=== PATIENT | male | born 1940 | race Caucasian/White ===

== ENCOUNTER 2017-07-16 11:24 | Emergency (ER) | payer OTHER ==
[~2017-07-16] VITALS: Ht 170.2 cm; Wt 90.7 kg
[~2017-07-16 11:24] MED LIST: ALBU90OI INH; Aspir 8181 MG PO; Glucophage1000 MG PO; METF500 PO; METO25ER PO; METO50ER PO; Omeprazole20 M1 PO; QVAR7.3 G1 IH; SIMV10 PO; Simvastatin20 MG PO; VALSARTAN-HCTZ1 EACH PO; VALSARTAN/HCTZ PO
[2017-07-16 12:02] LABS: BASOPHILS ABSOLUTE AUTO 0.03 K/mm3 (0.00-0.23); BASOPHILS PERCENT AUTO 0 % (0-2); EOSINOPHILS ABSOLUTE AUTO 0.25 K/mm3 (0.00-0.68); EOSINOPHILS PERCENT AUTO 3 % (0-6); Hematocrit 40.4 % (37.0-53.0); Hemoglobin 13.5 g/dL (13.5-17.5); IMMATURE GRAN ABSOLUTE AUTO 0.02 K/mm3 (0.00-0.10); IMMATURE GRAN PERCENT AUTO 0 % (0-1); LYMPHOCYTES PERCENT AUTO 30 % (21-46); MONOCYTES ABSOLUTE AUTO 0.69 K/mm3 (0.16-1.47); MONOCYTES PERCENT AUTO 9 % (4-13); Mean Corpuscular HGB 32.3 pg (26.0-34.0); Mean Corpuscular HGB Conc 33.4 g/dL (31.5-36.5); Mean Corpuscular Volume 97 fL (80-100); Mean Platelet Volume 10.8 fL (9.1-12.4); NEUTROPHILS ABSOLUTE AUTO 4.29 K/mm3 (1.96-9.15); NEUTROPHILS PERCENT AUTO 57 % (41-73); Platelet Count 230 K/mm3 (150-400); RDW Coefficient Variation 13.1 % (11.7-14.2); RDW Standard Deviation 46.2 fL (35.1-46.3); Red Blood Cell Count 4.18 M/mm3 (4.30-5.90); White Blood Cell Count 7.58 K/mm3 (4.00-11.30)
[2017-07-16 12:15] LABS: Albumin, Blood 3.9 g/dL (3.4-5.0); Albumin/Globulin Ratio 1.1 (0.8-1.8); Bilirubin, Total 0.7 mg/dL (0.1-1.0); Bun/Creatinine Ratio 24.5 (12.0-20.0); Calcium, Blood 9.2 mg/dL (8.5-10.1); Creatinine, Blood 1.51 mg/dL (0.60-1.20); Globulin, Blood 3.4 g/dL (2.2-4.0); Potassium, Blood 4.3 mmol/L (3.5-5.5); Total Protein, Blood 7.3 g/dL (6.4-8.2)
== END 2017-07-16 14:58 | disposition home or self-care (01) ==
LOC: ER 11:24
PROVIDERS: Emergency Medicine
DX: R06.02 Shortness of breath (principal); R53.1 Weakness; Z79.899 Other long term (current) drug therapy; Z79.82 Long term (current) use of aspirin; Z79.84 Long term (current) use of oral hypoglycemic drugs; I10 Essential (primary) hypertension; E11.9 Type 2 diabetes mellitus without complications
CPT/HCPCS: 36415; 71045; 80053; 85025; 93005; 93010; 93225; 93226; 99283

== ENCOUNTER → 2017-08-14 | Outpatient (CLI) | payer OTHER ==
[2017-08-14 10:51] LABS: BASOPHILS ABSOLUTE AUTO 0.02 K/mm3 (0.00-0.23); BASOPHILS PERCENT AUTO 0 % (0-2); EOSINOPHILS ABSOLUTE AUTO 0.08 K/mm3 (0.00-0.68); EOSINOPHILS PERCENT AUTO 1 % (0-6); Hematocrit 39.1 % (37.0-53.0); Hemoglobin 13.2 g/dL (13.5-17.5); IMMATURE GRAN ABSOLUTE AUTO 0.03 K/mm3 (0.00-0.10); IMMATURE GRAN PERCENT AUTO 0 % (0-1); LYMPHOCYTES ABSOLUTE AUTO 1.38 K/mm3 (0.84-5.20); LYMPHOCYTES PERCENT AUTO 20 % (21-46); MONOCYTES ABSOLUTE AUTO 0.78 K/mm3 (0.16-1.47); MONOCYTES PERCENT AUTO 11 % (4-13); Mean Corpuscular HGB 32.5 pg (26.0-34.0); Mean Corpuscular HGB Conc 33.8 g/dL (31.5-36.5); Mean Corpuscular Volume 96 fL (80-100); Mean Platelet Volume 9.8 fL (9.1-12.4); NEUTROPHILS ABSOLUTE AUTO 4.69 K/mm3 (1.96-9.15); NEUTROPHILS PERCENT AUTO 67 % (41-73); Platelet Count 191 K/mm3 (150-400); RDW Coefficient Variation 13.2 % (11.7-14.2); RDW Standard Deviation 46.9 fL (35.1-46.3); Red Blood Cell Count 4.06 M/mm3 (4.30-5.90); White Blood Cell Count 6.98 K/mm3 (4.00-11.30)
[2017-08-14 11:02] LABS: Calcium, Blood 8.9 mg/dL (8.5-10.1); Creatinine, Blood 1.53 mg/dL (0.60-1.20); Potassium, Blood 3.5 mmol/L (3.5-5.5)
== END ==
LOC: LAB EV 10:46 → LAB SHORT 10:46
PROVIDERS: Physician Assistant Surgical
DX: J18.9 Pneumonia, unspecified organism (principal)
CPT/HCPCS: 80048; 85025

== ENCOUNTER 2019-03-07 11:42 | Observation (INO) | payer OTHER ==
[~2019-03-07] VITALS: Ht 170.2 cm; Wt 90.7 kg
[~2019-03-07 11:42] MED LIST changes: -Omeprazole20 M1 PO
[2019-03-07] MEDS ORDERED: TAMSULOSIN HCL0.4 M1 PO (12:02)
[2019-03-07] MEDS ORDERED: SITA100T2 PO (12:02)
[2019-03-07] MEDS ORDERED: PIOGLITAZONE HC30 MG PO (12:03)
[2019-03-07 12:24] LABS: BASOPHILS ABSOLUTE AUTO 0.01 K/mm3 (0.00-0.23); BASOPHILS PERCENT AUTO 0 % (0-2); EOSINOPHILS ABSOLUTE AUTO 0.05 K/mm3 (0.00-0.68); EOSINOPHILS PERCENT AUTO 1 % (0-6); Hematocrit 41.7 % (37.0-53.0); Hemoglobin 13.7 g/dL (13.5-17.5); IMMATURE GRAN ABSOLUTE AUTO 0.02 K/mm3 (0.00-0.10); IMMATURE GRAN PERCENT AUTO 0 % (0-1); LYMPHOCYTES ABSOLUTE AUTO 1.63 K/mm3 (0.84-5.20); LYMPHOCYTES PERCENT AUTO 22 % (21-46); MONOCYTES ABSOLUTE AUTO 0.52 K/mm3 (0.16-1.47); MONOCYTES PERCENT AUTO 7 % (4-13); Mean Corpuscular HGB 32.6 pg (26.0-34.0); Mean Corpuscular HGB Conc 32.9 g/dL (31.5-36.5); Mean Corpuscular Volume 99 fL (80-100); Mean Platelet Volume 10.5 fL (9.1-12.4); NEUTROPHILS ABSOLUTE AUTO 5.11 K/mm3 (1.96-9.15); NEUTROPHILS PERCENT AUTO 70 % (41-73); Platelet Count 212 K/mm3 (150-400); RDW Coefficient Variation 13.2 % (11.7-14.2); RDW Standard Deviation 48.5 fL (35.1-46.3); White Blood Cell Count 7.34 K/mm3 (4.00-11.30)
[2019-03-07 12:43] LABS: Alanine Aminotransfer (ALT/SGP 33 U/L (12-78); Albumin, Blood 3.4 g/dL (3.4-5.0); Alk Phos 65 U/L (50-136); Anion Gap 9 mmol/L (6-16); Aspartate Aminotrans (AST/SGOT 37 U/L (12-37); Bilirubin, Total 0.8 mg/dL (0.1-1.0); Blood Urea Nitrogen 18 mg/dL (8-24); Bun/Creatinine Ratio 17.1 (12.0-20.0); CO2, Blood 26 mmol/L (21-32); Calcium, Blood 9.1 mg/dL (8.5-10.1); Chloride, Blood 107 mmol/L (98-108); Creatinine, Blood 1.05 mg/dL (0.60-1.20); Globulin, Blood 3.5 g/dL (2.2-4.0); Glomerular Filtration Rate >60 (60-); Glucose, Blood 139 mg/dL (70-99); Sodium, Blood 142 mmol/L (136-145); Total Protein, Blood 6.9 g/dL (6.4-8.2)
[2019-03-07] MEDS ORDERED: CLARITIN10 MG PO (16:11)
[2019-03-07] MEDS ORDERED: ACET325 PO (16:11)
[2019-03-07] MEDS ORDERED: Omeprazole20 M1 PO (16:11)
[2019-03-07] MEDS ORDERED: Excedrin Extra1 EACH PO (16:12)
--- NOTE | 2019-03-07 17:49 | NUR ---
PT ARRIVED TO UNIT VIA BED. PT ORIENTED TO ROOM. INTAKE INFORMATION COMPLEATED.
--- NOTE | 2019-03-07 19:40 | NUR ---
TELEMETRY CALLED TO REPORT INTERMTENT EPISODES OF TACYCARDIA. CONSTRUCTION SERVICES TECHNICIAN NURSE NOTIFIED
[2019-03-08 05:26] LABS: Hemoglobin 12.5 g/dL (13.5-17.5); Mean Corpuscular HGB 32.1 pg (26.0-34.0); Mean Corpuscular HGB Conc 32.1 g/dL (31.5-36.5); Mean Corpuscular Volume 100 fL (80-100); Mean Platelet Volume 10.1 fL (9.1-12.4); Platelet Count 180 K/mm3 (150-400); RDW Coefficient Variation 13.2 % (11.7-14.2); RDW Standard Deviation 48.7 fL (35.1-46.3); Red Blood Cell Count 3.89 M/mm3 (4.30-5.90); White Blood Cell Count 7.37 K/mm3 (4.00-11.30)
--- NOTE | 2019-03-08 05:35 | NUR ---
SUMMARY: PT A/OX4, PLEASANT AND COOPERATIVE W/CARE AND CALLS APPROPRIATELY. HE WAS ABLE TO REPOSITION SELF IN BED, AMBULATED W/SBA AND FWW TO TOILET AND STOOD AT EOB TO USE URINAL MULTIPLE TIMES W/O ANY C/O NAUSEA OR VIRTIGO. HE'S REPORTE A VERY MILD CUETO THAT COMES AND GOES BUT HAS DENIED NEEDING ANY PRN PAIN MEDS FOR IT. HEARING TO R.EAR REMAINS WORSE THEN THE L.EAR PER BASELINE. NS W/ 20 KCL INFUSES AT 75 ML/HR. MRI TO BE COMPLETED TODAY. VSS/AFEBRILE AND BP MUCH IMPROVED FROM ER. NO ACUTE CHANGES. WCTM AND REPORT TO DAY RN.
[2019-03-08 05:43] LABS: Anion Gap 7 mmol/L (6-16); Blood Urea Nitrogen 17 mg/dL (8-24); Bun/Creatinine Ratio 14.4 (12.0-20.0); CO2, Blood 25 mmol/L (21-32); Calcium, Blood 8.7 mg/dL (8.5-10.1); Chloride, Blood 112 mmol/L (98-108); Creatinine, Blood 1.18 mg/dL (0.60-1.20); Glomerular Filtration Rate >60 (60-); Glucose, Blood 103 mg/dL (70-99); Potassium, Blood 4.1 mmol/L (3.5-5.5); Sodium, Blood 144 mmol/L (136-145)
[2019-03-08] MEDS ORDERED: PROM25 PO (13:37)
--- NOTE | 2019-03-08 13:57 | NUR ---
DISCHARGE IV REMOVED. PATIENT REPORTING VERTIGO RESOLVED. ALL HOME MEDICATIONS RECONCILED. NEW MEDICATION SENT TO PHARMACY FOR PATIENT TO PICKUP. PATIENT WHEELED BY WC AND TO DRIVE PATIENT HOME.
== END 2019-03-08 13:53 | disposition home or self-care (01) ==
LOC: ER 11:42 → MEDS 11:43 → ENPENDDIS 03-08 13:11 → MEDS 03-08 13:53
PROVIDERS: Emergency Medicine; ADMIT Family Medicine
DX: R42 Dizziness and giddiness (principal); E86.9 Volume depletion, unspecified; J34.89 Other specified disorders of nose and nasal sinuses; E11.9 Type 2 diabetes mellitus without complications; J45.909 Unspecified asthma, uncomplicated; K21.9 Gastro-esophageal reflux disease without esophagitis; K75.81 Nonalcoholic steatohepatitis (NASH); I10 Essential (primary) hypertension; E78.5 Hyperlipidemia, unspecified; N40.0 Benign prostatic hyperplasia without lower urinary tract symptoms; Z90.49 Acquired absence of other specified parts of digestive tract; Z79.82 Long term (current) use of aspirin; Z79.899 Other long term (current) drug therapy
CPT/HCPCS: 36415; 70450; 70553; 80048; 80053; 82947; 84484; 85025; 85027; 93005; 93010; 96361; 96372; 96374; 96375; 96376; 99285-25; A9270; A9577; G0378; J1650; J1815; J2405; J3360; J3480; J7030

== ENCOUNTER → 2019-09-01 | Outpatient (CLI) | payer OTHER ==
[~2019-09-01] MED LIST changes: +ACET325 PO; +CLARITIN10 MG PO; +Excedrin Extra1 EACH PO; +Omeprazole20 M1 PO; +PIOGLITAZONE HC30 MG PO; +PROM25 PO; +SITA100T2 PO; +TAMSULOSIN HCL0.4 M1 PO
== END | disposition home or self-care (01) ==
LOC: LAB EV 10:03 → LAB SHORT 10:03
DX: R30.9 Painful micturition, unspecified (principal)
CPT/HCPCS: 87086

== ENCOUNTER → 2022-05-20 | Outpatient (CLI) | payer OTHER | LOC: LAB 16:39 → LAB SHORT 16:39 | DX: B35.1 Tinea unguium (principal) | CPT/HCPCS: 87102 ==

== ENCOUNTER → 2023-11-18 | Outpatient (CLI) | payer MEDICARE ==
[2023-11-22 12:43] LABS: Stool Occult Bld Immuno 1 Negative (NEGATIVE); Stool Occult Bld Immuno 2 Negative (NEGATIVE); Stool Occult Bld Immuno 3 Negative (NEGATIVE)
== END | disposition home or self-care (01) ==
LOC: LAB SHORT 16:24 → LAB 16:24
PROVIDERS: Family Medicine
DX: D64.9 Anemia, unspecified (principal)
CPT/HCPCS: G0328